=== PATIENT | male | born 1970 | race Caucasian/White ===

== ENCOUNTER → 2022-03-21 | Outpatient (CLI) | payer BC, OTHER ==
--- NOTE | 2022-05-27 16:05 | EST ---
STRESS TEST Rubén Protocol Stage Speed (mph) Grade (%) Time (min) METS BP (mmHg) HR (bpm) Comments REST --- rest REST --- BASELINE REST 0.0 0.0 01:31 1.0 130/87 101 REST 0.0 0.0 01:48 1.0 130/87 106 REST 1.0 0.0 03:01 1.8 130/87 101 STAGE 1 1.7 10.0 03:00 4.6 172/103 126 STAGE 2 2.5 12.0 02:00 7.0 172/103 155 Peak RECOVERY 1.5 0.0 00:12 2.1 172/103 143 RECOVERY 0.0 0.0 00:33 1.0 202/107 134 RECOVERY 0.0 0.0 00:59 1.0 202/107 127 RECOVERY 0.0 0.0 01:43 1.0 198/104 114 RECOVERY 0.0 0.0 01:59 1.0 198/104 110 RECOVERY 0.0 0.0 02:59 1.0 198/104 99 RECOVERY 0.0 0.0 03:59 1.0 163/96 94 RECOVERY 0.0 0.0 04:59 1.0 163/96 96 RECOVERY 0.0 0.0 05:59 1.0 132/93 98 RECOVERY 0.0 0.0 06:04 1.0 132/93 98 Exercise Duration (min:sec) 05:[address] Depression (mm): Angina Score: Multani Score: Total Dose: Peak Dose: Atropine: Resting HR (bpm): 101 Resting BP (mmHg): 130/87 MPHR: 170 Target HR: 145 Mets: 7.1 BR Response: Normal Resting Blood Pressure - Appropriate Stress Termination: Dizziness, Target HR reached/max exertion Stress Symptoms: Dizziness Stress Summary: The patient's target heart rate was achieved. The hemodynamic response to exercise was normal ECG ANALYSIS Resting ECG: Sinus rhythm. Normal conduction. No arrhythmias. Normal repolarization. Stress ECG: No ECG evidence of ischemia with exercise. Ventricular premature contraction. CONCLUSIONS 1. Decreased exercise tolerance 2. Occasional PVCs with couplets 3. Normal electrocardiographic response to exercise. MTDD
== END | disposition home or self-care (01) ==
LOC: RADNMMAIN 10:39
PROVIDERS: ATTEND Family Medicine
DX: I49.3 Ventricular premature depolarization (principal); R06.02 Shortness of breath; R61 Generalized hyperhidrosis; R07.89 Other chest pain
CPT/HCPCS: 93017